=== PATIENT | female | born 1950 | race Caucasian/White ===

== ENCOUNTER → 2018-08-20 | Outpatient (CLI) | payer OTHER | LOC: M OUTALCOH 07:40 | PROVIDERS: ATTEND Psychiatry & Neurology Psychiatry | DX: Z03.89 Encounter for observation for other suspected diseases and conditions ruled out (principal) ==

== ENCOUNTER 2018-09-12 07:51 | Outpatient (RCR) | payer OTHER | END 2018-09-26 | LOC: M OUTALCOH 07:51 | PROVIDERS: ATTEND Psychiatry & Neurology Psychiatry | DX: Z03.89 Encounter for observation for other suspected diseases and conditions ruled out (principal) | CPT/HCPCS: H0050 ×2 ==